=== PATIENT | female | born 1960 | race Caucasian/White ===

== ENCOUNTER 2017-01-24 20:30 | Emergency (ER) | payer OTHER ==
[~2017-01-24] VITALS: Ht 154.9 cm; Wt 59.6 kg
[2017-01-24 21:10] LABS: HEMATOCRIT 44.9 % (36.0-46.0); MCH 28.3 PG (29.0-34.0); MCHC 33.6 G/DL (30.0-36.0); MCV 84.2 FL (83-99); MEAN PLAT.VOLUME 9.9 uM^3 (9.5-12.4); PLATELET COUNT 258 K/uL (156-360); RBC DIS.WIDTH-CV 11.9 % (11.8-14.6); RBC DIS.WIDTH-SD 36.3 % (39-53); RED BLOOD COUNT 5.33 M/uL (3.80-5.20); WHITE BLOOD COUNT 5.6 K/uL (4.1-10.2)
[2017-01-24 21:16] LABS: ADD MIUA? NO; BILIRUBIN NEGATIVE; BLOOD NEGATIVE; COLOR COLORLESS ((YELLOW)); GLUCOSE (STRIP) NEGATIVE; KETONES NEGATIVE; LEUKOCYTES NEGATIVE; NITRITE NEGATIVE; PROTEIN (STRIP) NEGATIVE; SPECIFIC GRAVITY 1.004 (1.000-1.030); UCUL ADDED? NO; UROBILINOGEN 0.2 MG/DL (0.2-1.0)
[2017-01-24 21:21] LABS: CHLORIDE 103 mEq/L (99-109); POTASSIUM 3.7 mEq/L (3.7-5.4); SODIUM 140 mEq/L (136-147)
[2017-01-24 21:23] LABS: GLUCOSE 100 mg/dL (70-99)
[2017-01-24 21:24] LABS: ANION GAP 11 MEQ/L (2-14)
[2017-01-24 21:25] LABS: TOTAL BILIRUBIN 0.7 mg/dL (0.0-1.0)
[2017-01-24 21:26] LABS: ALKALINE PHOSPHATASE 91 IU/L (3-129); GFR ESTIMATE (CALCULATED) > 59 mL/min/
[2017-01-24 21:28] LABS: UREA NITROGEN (BUN) 12 mg/dL (9-23)
[2017-01-24 21:30] LABS: LIPASE 44 U/L (1.0-51.0)
[2017-01-24 21:36] LABS: QUANTITATIVE HCG < 4.0 MIU/ML
[2017-01-25 00:17] VITALS: BP 136/75
== END 2017-01-25 | disposition home or self-care (01) ==
LOC: EME 20:30
DX: R10.32 Left lower quadrant pain (principal); N85.2 Hypertrophy of uterus; K57.30 Diverticulosis of large intestine without perforation or abscess without bleeding; R53.83 Other fatigue; R00.2 Palpitations
CPT/HCPCS: 74177; 80053; 81003; 83690; 84702; 85027; 99281; 99284; J7030